=== PATIENT | male | born 1970 | race Caucasian/White ===

== ENCOUNTER 2018-07-25 14:31 | Emergency (ER) | payer OTHER, SELFPAY ==
[2018-07-25 14:32] VITALS: BP 143/76; PULSE 71; RESP 18; TEMP 36.6; O2SAT 96; BMI 25.7
--- NOTE | 2018-07-25 14:34 | ED.RN ---
PT TO RETURN TO [facility] FOR TESTING
--- NOTE | 2018-07-25 14:50 | ED.VISSUMM ---
- ER Visit Summary Date of Service: 07/25/18 Chief Complaint: Left index finger laceration History of Present Illness: The patient is a 47 M with a table saw injury, he has an abrasion over the dorsum of his left index finger, proximal nailbed is involved. Tetanus is not up-to-date Physical Examination: There is a small abrasion over the dorsal DIP joint, this also has a small laceration about 3 mm of the nail bed approximately nail slightly uneven. Normal extensor function and normal flexor function. No other injuries. Emergency Department Course and Treatment: Patient has an abrasion with a very small laceration that does not need any suturing, however his nail is slightly uneven I told him to use nail nepali until the nail likely fall off. Otherwise tetanus will be given and patient was told to keep the wound clean. Antibiotics are not warranted. Disposition: Discharge stable condition Impression: Finger laceration This note was generated with [employer] dictation software. It may contain incorrect words, spelling, and punctuation that were not noted in review of the chart prior to signing ED Disposition - Plan for ED Patient: Disposition: Home or Assisted Living Instructions: ED Laceration Hand Referrals: HAYDEE HUBBARD [GROUP OF PHYSICIANS] - 3-5 Days
== END 2018-07-25 15:42 | disposition home or self-care (01) ==
LOC: ED 15:06
PROVIDERS: Emergency Provider Emergency Medicine
DX: S61.311A Laceration without foreign body of left index finger with damage to nail, initial encounter (principal); W29.8XXA Contact with other powered hand tools and household machinery, initial encounter; Y93.9 Activity, unspecified; Y92.9 Unspecified place or not applicable; Y99.9 Unspecified external cause status; Z23 Encounter for immunization
CPT/HCPCS: 90471; 90715; 99282